=== PATIENT | female | born 1950 | race Hispanic/Latino ===

== ENCOUNTER 2025-08-12 17:45 | Emergency (ER) | payer OTHER ==
[~2025-08-12 17:45] MED LIST: Iopamidol-370 76% 500 ML MDV (1 ML CHARGE) ONE
[2025-08-12 19:34] LABS: #Basophils Less than 0.03 10x3/uL (0.0-0.2); #Eosinophils 0.10 10x3/uL (0.0-0.7); #Monocytes 0.48 10x3/uL (0.11-0.59); #Neutrophils 4.00 10x3/uL (1.40-6.50); %Basophils 0.3 % (0.0-1.0); %Eosinophils 1.7 % (0.0-10.0); %Lymphocytes 22.9 % (21.0-51.0); %Monocytes 8.0 % (0.0-10.0); %Neutrophils 66.9 % (42.0-75.0); Hematocrit 41.6 % (36.0-47.0); Hemoglobin 13.0 g/dL (12.0-16.0); Mean Corpuscular Hemoglobin 27.0 pg (27.0-31.0); Mean Corpuscular Volume 86.3 fL (78.0-98.0); Platelet Count 331 10x3/uL (130-400); Red Blood Cell (RBC) Count 4.82 mill/uL (4.20-5.40); White Blood Cell (WBC) Count 5.98 10x3/uL (4.8-10.8)
[2025-08-12 20:04] LABS: CAUTI Indications for Culture Acute Hematuria; Glucose, Urine (Dipstick) Greater than 1000 mg/dL (Negative); Leukocyte Negative Leu/uL (Negative); Protein, Urine (Dipstick) Negative (Neg-Trace); RBC/HPF 0-3 HPF (0-3); Specific Gravity, Urine 1.033 (1.002-1.036)
[2025-08-12 20:06] LABS: ALT (SGPT) 11 U/L (Less than 34); AST (SGOT) 24 U/L (11-34); Albumin 3.7 g/dL (3.1-4.5); Alkaline Phosphatase 107 U/L (40-110); Anion Gap 15 mmol/L (10-20); BUN (Urea Nitrogen) 26 mg/dL (9.8-20.1); Bilirubin, Total 0.2 mg/dL (0.3-1.2); Calc. Creatinine Clearance 0 mL/min (70-130); Calcium 9.4 mg/dL (7.8-10.44); Carbon Dioxide 27 mmol/L (23-31); Chloride 105 mmol/L (98-107); Globulin 3.5 g/dL (2.4-3.5); Glucose 174 mg/dL (83-110); Potassium 3.5 mmol/L (3.5-5.1); Sodium 143 mmol/L (136-145)
[2025-08-12 20:06] LABS: Bacteria/HPF 1+ HPF (None Seen)
[2025-08-12 20:07] LABS: Urine Culture Reflex No No
[2025-08-12] MEDS ORDERED: hydrALAZINE 20 MG/ML VIAL ONE (22:33)
== END 2025-08-12 22:53 | disposition home or self-care (01) ==
LOC: ERS 17:45
DX: R31.9 Hematuria, unspecified (principal); N32.9 Bladder disorder, unspecified; E11.9 Type 2 diabetes mellitus without complications; I10 Essential (primary) hypertension; Z87.891 Personal history of nicotine dependence
CPT/HCPCS: 74177; 80053; 81001; 83690; 85025; 86850; 86900; 86901; J0360; 96374

== ENCOUNTER 2025-09-11 09:40 | Inpatient (IN) | payer OTHER ==
[2025-09-11 10:04] LABS: #Basophils Less than 0.03 10x3/uL (0.0-0.2); #Eosinophils Less than 0.03 10x3/uL (0.0-0.7); #Monocytes 0.62 10x3/uL (0.11-0.59); #Neutrophils 5.63 10x3/uL (1.40-6.50); %Basophils 0.3 % (0.0-1.0); %Eosinophils 0.3 % (0.0-10.0); %Lymphocytes 20.8 % (21.0-51.0); %Monocytes 7.8 % (0.0-10.0); %Neutrophils 70.5 % (42.0-75.0); Hematocrit 43.5 % (36.0-47.0); Hemoglobin 13.9 g/dL (12.0-16.0); Mean Corpuscular Hemoglobin 27.0 pg (27.0-31.0); Mean Corpuscular Volume 84.6 fL (78.0-98.0); Platelet Count 309 10x3/uL (130-400); Red Blood Cell (RBC) Count 5.14 mill/uL (4.20-5.40); White Blood Cell (WBC) Count 7.97 10x3/uL (4.8-10.8)
[2025-09-11 10:27] LABS: INR-International Normal Ratio 1.0; Prothrombin Time 12.8 sec (12.0-14.7)
[2025-09-11 10:28] LABS: PTT 28.4 sec (22.9-36.1)
[2025-09-11 10:29] LABS: ALT (SGPT) 20 U/L (Less than 34); AST (SGOT) 30 U/L (11-34); Albumin 3.8 g/dL (3.1-4.5); Alkaline Phosphatase 111 U/L (40-110); Anion Gap 21 mmol/L (10-20); BUN (Urea Nitrogen) 20 mg/dL (9.8-20.1); Bilirubin, Total 0.9 mg/dL (0.3-1.2); Calc. Creatinine Clearance 0 mL/min (70-130); Calcium 9.6 mg/dL (7.8-10.44); Carbon Dioxide 22 mmol/L (23-31); Chloride 97 mmol/L (98-107); Globulin 4.0 g/dL (2.4-3.5); Glucose 168 mg/dL (83-110); Potassium 3.2 mmol/L (3.5-5.1); Sodium 137 mmol/L (136-145)
[2025-09-11] MEDS ORDERED: Dextrose 50% Abboject 50 ML SYRINGE SLOW IVP PRN (11:28)
[2025-09-11] MEDS ORDERED: Ondansetron PF 4 MG/2 ML Vial IVP PRN (11:28)
[2025-09-11] MEDS ORDERED: hydrALAZINE 20 MG/ML VIAL SLOW IVP PRN (11:28)
[2025-09-11] MEDS ORDERED: Glucagon 1 MG/ML KIT IM PRN (11:28)
[2025-09-11] MEDS ORDERED: CEFAZOLIN 2 GM VIAL ONE (13:49)
[2025-09-11] MEDS ORDERED: Ondansetron PF 4 MG/2 ML Vial ONE (14:10)
[2025-09-11] MEDS ORDERED: Lidocaine 1% PF 5 ML VIAL ONE (14:10)
[2025-09-11] MEDS ORDERED: PROPOFOL 200 MG/20 ML VIAL ONE (14:20)
[2025-09-11] MEDS ORDERED: fentaNYL PF 100 MCG/2 ML SYRINGE ONE (15:49)
[2025-09-11] MEDS ORDERED: HYDROmorphone 0.5 MG/0.5 ML SYRINGE ONE (16:39)
[2025-09-11 18:43] VITALS: BMI 28.1
[2025-09-11] MEDS: Senokot S 8.6-50 MG TAB PO SCH (20:51)
[2025-09-12 05:17] LABS: #Basophils Less than 0.03 10x3/uL (0.0-0.2); #Eosinophils Less than 0.03 10x3/uL (0.0-0.7); #Monocytes 0.78 10x3/uL (0.11-0.59); #Neutrophils 6.35 10x3/uL (1.40-6.50); %Basophils 0.2 % (0.0-1.0); %Eosinophils 0.1 % (0.0-10.0); %Lymphocytes 11.1 % (21.0-51.0); %Monocytes 9.6 % (0.0-10.0); %Neutrophils 78.6 % (42.0-75.0); Hematocrit 33.4 % (36.0-47.0); Hemoglobin 10.3 g/dL (12.0-16.0); Mean Corpuscular Hemoglobin 27.2 pg (27.0-31.0); Mean Corpuscular Volume 88.1 fL (78.0-98.0); Platelet Count 262 10x3/uL (130-400); Red Blood Cell (RBC) Count 3.79 mill/uL (4.20-5.40); White Blood Cell (WBC) Count 8.09 10x3/uL (4.8-10.8)
[2025-09-12 05:33] LABS: Anion Gap 13 mmol/L (10-20); BUN (Urea Nitrogen) 18 mg/dL (9.8-20.1); Calc. Creatinine Clearance 87 mL/min (70-130); Calcium 8.4 mg/dL (7.8-10.44); Carbon Dioxide 25 mmol/L (23-31); Chloride 102 mmol/L (98-107); Glucose 145 mg/dL (83-110); Potassium 3.5 mmol/L (3.5-5.1); Sodium 136 mmol/L (136-145)
[2025-09-12] MEDS: Acetaminophen 325 MG TAB PO PRN (07:37)
[2025-09-12] MEDS: Methocarbamol 500 MG TAB PO PRN (07:37)
[2025-09-12] MEDS: Enoxaparin 40 MG (0.4 mL) SYRINGE SC SCH (08:22)
[2025-09-13 06:53] LABS: #Basophils Less than 0.03 10x3/uL (0.0-0.2); #Eosinophils 0.04 10x3/uL (0.0-0.7); #Monocytes 0.63 10x3/uL (0.11-0.59); #Neutrophils 4.16 10x3/uL (1.40-6.50); %Basophils 0.3 % (0.0-1.0); %Eosinophils 0.7 % (0.0-10.0); %Lymphocytes 15.6 % (21.0-51.0); %Monocytes 10.9 % (0.0-10.0); %Neutrophils 72.2 % (42.0-75.0); Hematocrit 32.4 % (36.0-47.0); Hemoglobin 10.1 g/dL (12.0-16.0); Mean Corpuscular Hemoglobin 27.2 pg (27.0-31.0); Mean Corpuscular Volume 87.3 fL (78.0-98.0); Platelet Count 251 10x3/uL (130-400); Red Blood Cell (RBC) Count 3.71 mill/uL (4.20-5.40); White Blood Cell (WBC) Count 5.77 10x3/uL (4.8-10.8)
[2025-09-13 07:06] LABS: Anion Gap 12 mmol/L (10-20); BUN (Urea Nitrogen) 17 mg/dL (9.8-20.1); Calc. Creatinine Clearance 93 mL/min (70-130); Calcium 8.5 mg/dL (7.8-10.44); Carbon Dioxide 27 mmol/L (23-31); Chloride 103 mmol/L (98-107); Glucose 162 mg/dL (83-110); Potassium 3.6 mmol/L (3.5-5.1); Sodium 138 mmol/L (136-145)
[2025-09-14 06:54] LABS: #Basophils Less than 0.03 10x3/uL (0.0-0.2); #Eosinophils 0.06 10x3/uL (0.0-0.7); #Monocytes 0.41 10x3/uL (0.11-0.59); #Neutrophils 3.50 10x3/uL (1.40-6.50); %Basophils 0.4 % (0.0-1.0); %Eosinophils 1.3 % (0.0-10.0); %Lymphocytes 15.8 % (21.0-51.0); %Monocytes 8.6 % (0.0-10.0); %Neutrophils 73.7 % (42.0-75.0); Hematocrit 30.7 % (36.0-47.0); Hemoglobin 9.8 g/dL (12.0-16.0); Mean Corpuscular Hemoglobin 27.4 pg (27.0-31.0); Mean Corpuscular Volume 85.8 fL (78.0-98.0); Platelet Count 268 10x3/uL (130-400); Red Blood Cell (RBC) Count 3.58 mill/uL (4.20-5.40); White Blood Cell (WBC) Count 4.75 10x3/uL (4.8-10.8)
[2025-09-14 07:11] LABS: Anion Gap 14 mmol/L (10-20); BUN (Urea Nitrogen) 13 mg/dL (9.8-20.1); Calc. Creatinine Clearance 108 mL/min (70-130); Calcium 8.3 mg/dL (7.8-10.44); Carbon Dioxide 26 mmol/L (23-31); Chloride 103 mmol/L (98-107); Glucose 125 mg/dL (83-110); Potassium 3.2 mmol/L (3.5-5.1); Sodium 140 mmol/L (136-145)
[2025-09-15 03:52] LABS: #Basophils 0.03 10x3/uL (0.0-0.2); #Eosinophils 0.19 10x3/uL (0.0-0.7); #Monocytes 0.55 10x3/uL (0.11-0.59); #Neutrophils 4.25 10x3/uL (1.40-6.50); %Basophils 0.5 % (0.0-1.0); %Eosinophils 3.2 % (0.0-10.0); %Lymphocytes 14.9 % (21.0-51.0); %Monocytes 9.3 % (0.0-10.0); %Neutrophils 71.8 % (42.0-75.0); Hematocrit 29.9 % (36.0-47.0); Hemoglobin 9.3 g/dL (12.0-16.0); Mean Corpuscular Hemoglobin 27.2 pg (27.0-31.0); Mean Corpuscular Volume 87.4 fL (78.0-98.0); Platelet Count 290 10x3/uL (130-400); Red Blood Cell (RBC) Count 3.42 mill/uL (4.20-5.40); White Blood Cell (WBC) Count 5.92 10x3/uL (4.8-10.8)
[2025-09-15 04:16] LABS: Anion Gap 10 mmol/L (10-20); BUN (Urea Nitrogen) 15 mg/dL (9.8-20.1); Calc. Creatinine Clearance 104 mL/min (70-130); Calcium 8.4 mg/dL (7.8-10.44); Carbon Dioxide 29 mmol/L (23-31); Chloride 102 mmol/L (98-107); Glucose 129 mg/dL (83-110); Potassium 3.1 mmol/L (3.5-5.1); Sodium 138 mmol/L (136-145)
[2025-09-15] MEDS ORDERED: Potassium Chloride 20 MEQ in Premix 1 BAG IVPB PRN (07:45)
[2025-09-15] MEDS ORDERED: PHOS-NAK 1 PKT PACK PO PRN (07:45)
[2025-09-15] MEDS ORDERED: Magnesium 2 GM/50 ML(in water) 2 GM in Premix 1 BAG IVPB PRN (07:45)
[2025-09-15 18:19] LABS: Potassium 3.3 mmol/L (3.5-5.1)
[2025-09-16 07:29] LABS: Anion Gap 13 mmol/L (10-20); BUN (Urea Nitrogen) 12 mg/dL (9.8-20.1); Calc. Creatinine Clearance 122 mL/min (70-130); Calcium 8.7 mg/dL (7.8-10.44); Carbon Dioxide 26 mmol/L (23-31); Chloride 101 mmol/L (98-107); Glucose 145 mg/dL (83-110); Potassium 3.3 mmol/L (3.5-5.1); Sodium 137 mmol/L (136-145)
[2025-09-16] MEDS: Lactulose 20 GM (30 mL) UDCUP PO SCH (09:20)
[2025-09-16 19:36] VITALS: BP 164/74; TEMP 98.3
== END 2025-09-16 21:55 | DRG 482 ==
LOC: ERS 09:40 → SDC 12:26 → SURG A 14:45
PROVIDERS: ADMIT Orthopaedic Surgery; ATTEND Orthopaedic Surgery
PROC: 0QS706Z Reposition Left Upper Femur with Intramedullary Internal Fixation Device, Open Approach (ICD-10-PCS; principal; 2025-09-11)
PROC: 3E03329 Introduction of Other Anti-infective into Peripheral Vein, Percutaneous Approach (ICD-10-PCS; 2025-09-11)
DX: S72.142A Displaced intertrochanteric fracture of left femur, initial encounter for closed fracture (principal); E87.6 Hypokalemia; E11.9 Type 2 diabetes mellitus without complications; E78.5 Hyperlipidemia, unspecified; I10 Essential (primary) hypertension; W19.XXXA Unspecified fall, initial encounter; Z86.73 Personal history of transient ischemic attack (TIA), and cerebral infarction without residual deficits; Z98.890 Other specified postprocedural states; Z87.891 Personal history of nicotine dependence; Z79.01 Long term (current) use of anticoagulants; Z79.02 Long term (current) use of antithrombotics/antiplatelets; Z79.84 Long term (current) use of oral hypoglycemic drugs
CPT/HCPCS: 36415; 36416; 70450; 71045; 72125; 72170; 80048; 80053; 83036; 84484; 85025; 85610; 85730; 86850; 86900; 86901; 93005; 94760; 96374; C1713; G0390; J1171; J1650; J1815; J2270; J2405; J2704; J3010; J7120